=== PATIENT | female | born 1960 | race Caucasian/White ===

== ENCOUNTER 2020-01-09 12:07 | Outpatient (CLI) | payer BC ==
--- NOTE | 2020-01-09 13:27 | RAD ---
FINGERS RIGHT HAND 3 VIEWS: Date: 01/09/2020 HISTORY: Injury to third digit. FINDINGS: There is an obliquely oriented fracture involving the middle phalanx of the third digit. There may be mild comminution. There is no significant displacement. No other fracture identified. IMPRESSION: Fracture middle phalanx third finger. POS: AGW
== END 2020-01-09 12:08 | disposition home or self-care (01) ==
LOC: MADRAD 12:07
PROVIDERS: ATTEND Family Medicine
DX: S69.91XA Unspecified injury of right wrist, hand and finger(s), initial encounter (principal); S62.622A Displaced fracture of middle phalanx of right middle finger, initial encounter for closed fracture

== ENCOUNTER 2020-02-14 11:51 | Outpatient (CLI) | payer BC ==
--- NOTE | 2020-02-14 12:56 | RAD ---
RIGHT FINGER 3 VIEWS: HISTORY: Fracture of the right middle finger. COMPARISON: 01/09/2020. FINDINGS/IMPRESSION: The obliquely oriented fracture involving the shaft of the middle phalanx of the 3rd digit is again s een with displacement, change in alignment, or significant interval healing. POS: AH
== END 2020-02-14 11:52 | disposition home or self-care (01) ==
LOC: MADRAD 11:51
PROVIDERS: ATTEND Family Medicine
DX: S62.622A Displaced fracture of middle phalanx of right middle finger, initial encounter for closed fracture (principal)